=== PATIENT | male | born 1995 | race Caucasian/White ===

== ENCOUNTER 2024-05-28 07:58 | Outpatient (AMB) | payer OTHER, SELFPAY ==
--- NOTE | 2024-05-28 08:00 | MHC.OFFVIS ---
Vital Signs 05/28/24 08:01 Height 5 ft 10 in Weight 200 lb BMI 28.7 BP 120/82 Blood Pressure Location Lt brachial Position Sitting Respiration 14 Pulse 88 Pulse Source Pulse Oximeter Pulse Oximetry (%) 99 Oxygen Delivery Method Room Air Intake Visit Reasons: low back pain Allergies No Known Allergies Allergy (Verified 05/28/24 08:02) Medication List - Last Reconciled 05/28/24 by Jasmina Geller LPN dextroamphetamine-amphetamine 25 mg ER 1 cap PO QAM sitagliptin phos-metformin 50-1,000 mg (Janumet) 1 tab PO BID HPI HPI low back pain: Details: 29-year-old male who presents today to the office for an evaluation of low back pain. The patient reports low back pain. He states that his pain is localized in the low back and denies any radiating pain down to his leg. He reports left leg numbness with prolonged standing and walking. He reports 1 bad day every 4-5 days. He denies any limitations in his ADLs. He was playing baseball when he was in college. 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 He started physical therapy in 2020 for his back pain without any relief. He had He received two doses of steroid injections in the back at [facility] [place] which provided temporary relief each time. Last MRI scan scan of the lumbar spine was done in 2020. He missed the appointment for the third dose of the steroid injection. Stretching and strengthening exercises provide temporary relief for they. He works as a personal financial advisor. He has a history of diabetes mellitus type II; family history is notable for early onset type 2 diabetes. [facility] Medical History (Updated 05/28/24 @ 08:43 by Harley Knox MD) Femoral acetabular impingement Diabetes mellitus Surgical History (Updated 05/28/24 @ 08:43 by Harley Knox MD) Status post hip surgery Review of Systems Const All systems reviewed & are unremarkable except as noted in HPI and below Physical Exam Vital Signs: Last Vital Signs Pulse 88 05/28/24 08:01 Resp 14 05/28/24 08:01 BP 120/82 05/28/24 08:01 Pulse Ox 99 05/28/24 08:01 Oxygen Delivery Method Room Air 05/28/24 08:01 BMI result Body Mass Index 28.7 General: Appears afebrile. Alert and oriented. Mood and affect appropriate. Follows and participates in conversation appropriately. Respiratory effort is unlabored. Able to transition from sit to stand unassisted. Ambulates with bilaterally normal heel strike and toe off. The straight leg raise is positive on the left side. Lumbar range of motion is mostly intact without any significant precipitation of pain. He reports some tightness with lateral bending towards the right side and the left lower back.? Results Reviewed Results Reviewed: 09/08/2021: MR LUMBAR SPINE Assessment & Plan Assessment & Plan (1) Lumbar radiculopathy: Code(s): M54.16 - Radiculopathy, lumbar region Category: Medical Plan I ordered an MRI scan of the lumbar spine for further evaluation of low back pain radiating to the left leg not responsive to a home exercise program and conservative management. Recommended trying weightless exercises at home, including aquatic exercises and swimming, inversion table and natural herbal supplements. We also discussed trying temporary peripheral nerve stimulators vs. regenerative medicines/injections as a possible treatment option in the future if his pain does not improve with conservative measures alone. Patient will follow-up after his MRI scan to review the results and proceed accordingly. Scribed for Dr. Knox by Keanu Villeda, emergency medical technician basic, on 05/28/2024. I, Dr. Knox, have personally reviewed and agree with the information entered by the scribe. Orders: Orders MR lumbar spine wo con Today M54.16 - Radiculopathy, lumbar region Coding Level of Care Code New Pt Level 4 (71252) Diagnoses Lumbar radiculopathy M54.16
[2024-05-28 08:01] VITALS: BP 120/82; PULSE 88; RESP 14; O2SAT 99; BMI 28.7
== END 2024-05-28 08:45 | disposition home or self-care (01) ==
LOC: HO.PMC 07:58
PROVIDERS: PCP Internal Medicine; Visit Provider Internal Medicine
DX: M54.16 Radiculopathy, lumbar region (principal)
CPT/HCPCS: 99203

== ENCOUNTER → 2024-05-28 07:58 | Outpatient (BNVA) | payer OTHER, SELFPAY | PROVIDERS: PCP Internal Medicine; Visit Provider Internal Medicine ==

== ENCOUNTER 2024-07-19 13:33 | Outpatient (REF) | payer OTHER, SELFPAY ==
--- NOTE | ~2024-07-19 | MR_ITS ---
EXAMINATION: MR LUMBAR SPINE WITHOUT CONTRAST CLINICAL INFORMATION: 29-year-old with radiculopathy, lumbar region. Low back pain and left leg pain and numbness. COMPARISON: None available. TECHNIQUE: MRI of the lumbar spine was obtained using routine sequences without contrast. FINDINGS: Coronal Alignment: Normal. Sagittal Alignment: Normal. Lumbosacral Junction: Normal. There are 5 [id number] lumbar-type vertebral bodies. Vertebral Bodies: Vertebral body heights are well-maintained. Disc Spaces and Endplates: The intervertebral disc space heights are well-maintained. There is heterogeneous loss of the intradiscal T2 weighted signal in the L4-L5 intervertebral disc space consistent with discogenic degenerative change. There is a tiny Schmorl's node along the inferior endplate of L4 on the right. There is no significant spondylosis. The remaining lumbar intervertebral discs demonstrate normal height and signal. Spinal Canal: No abnormal developmental findings. Bone Marrow: Bone marrow signal intensity appears grossly within normal limits. Conus Medullaris: Terminates at T12-L1. Morphology and signal is concern for possible increased T2 signal intensity in the conus and distal aspect of the visualized thoracic spinal cord. Recommend MRI of the thoracic spine without and with contrast to further assess. Intradural Nerve Roots: Within normal limits. L5-S1: Normal annular contour. Mild facet joint arthropathy noted bilaterally. No significant canal or neural foraminal stenosis. L4-L5: Broad-based [id number] subarticular disc herniation noted with encroachment on the ventral thecal sac asymmetric to the left, impinging on the left L5 nerve root in the subarticular zone. There is also some encroachment on the traversing right L5 nerve root in the right subarticular zone. There is mild facet joint hypertrophic degenerative change on the left and ligamentum flavum thickening with no significant central canal stenosis. There is crowding of the subarticular recesses, left more than right. No significant neural foraminal stenosis. L3-L4: Trace annular bulging with a tiny superimposed central disc protrusion with minimal indentation of the ventral thecal sac. No significant facet joint arthrosis, canal or neural foraminal stenosis. L2-L3: Normal annular contour. No facet joint arthropathy, canal or foraminal stenosis. L1-L2: Normal annular contour. No facet joint arthrosis, canal or foraminal stenosis. Paravertebral and Included Extraspinal Soft Tissues: The visualized paravertebral soft tissues and included retroperitoneal structures are unremarkable within the limitations of the exam. MR/MR lumbar spine wo con IMPRESSION: 1. Discogenic degenerative changes at L4-L5 with a broad-based [id number] subarticular disc herniation encroaching on the traversing L5 nerve roots, left more than right, with crowding of the subarticular recesses, left more than right. 2. Minimal annular bulging and tiny central disc protrusion at L3-L4 without spinal canal or neural foraminal stenosis. 3. Mild facet joint arthropathy at L5-S1 bilaterally. 4. Question of increased T2 signal intensity in the conus and distal thoracic spinal cord. Cannot exclude cord edema. RECOMMEND MRI OF THE THORACIC SPINE WITHOUT AND WITH CONTRAST TO FURTHER ASSESS. The [facility] staff will call to confirm receipt of this report with acknowledgement of the findings and any recommendations. Electronically signed by: Jose Angel Hawthorne MD 08/07/2024 03:49 PM EDT
== END 2024-07-19 13:34 | disposition home or self-care (01) ==
LOC: HO.MRI 13:33
PROVIDERS: PCP Internal Medicine; Visit Provider Internal Medicine
DX: M54.16 Radiculopathy, lumbar region (principal)
CPT/HCPCS: 72148

== ENCOUNTER 2024-09-18 15:48 | Outpatient (REF) | payer OTHER, SELFPAY ==
[2024-09-18] MEDS: gadobutroL 10 ML VIAL IVPUSH (16:32)
== END 2024-09-18 15:49 | disposition home or self-care (01) ==
LOC: HO.MRI 15:48
PROVIDERS: PCP Internal Medicine; Visit Provider Internal Medicine
DX: G95.19 Other vascular myelopathies (principal)
CPT/HCPCS: 72157; A9585